=== PATIENT | male | born 1970 | race Caucasian/White ===

== ENCOUNTER 2019-07-03 15:50 | Inpatient (IN) | payer BC ==
[~2019-07-03] VITALS: Ht 182.9 cm; Wt 99.6 kg
[~2019-07-03 15:50] MED LIST changes: -COLACE 100100 MG/CAP PO; -COZAAR100 MG PO; -ELIQUIS 5MG PO; -K-TAB20 PO; -MOTRIN 400400 MG/TAB PO; -NORCO 325 MG-7.1 TAB PO; -ULTRAM 50MG TAB50 MG PO; -ZYRTEC 10MG10 MG PO
[2019-07-03] MEDS ORDERED: COZAAR100 MG PO (16:23)
[2019-07-03] MEDS ORDERED: NORCO 325 MG-7.1 TAB PO (16:24)
[2019-07-03] MEDS ORDERED: ULTRAM 50MG TAB50 MG PO (16:25)
[2019-07-03] MEDS ORDERED: COLACE 100100 MG/CAP PO (16:26)
[2019-07-03] MEDS ORDERED: ZYRTEC 10MG10 MG PO (16:26)
[2019-07-03] MEDS ORDERED: MOTRIN 400400 MG/TAB PO (16:27)
--- NOTE | 2019-07-03 17:29 | NUR ---
Admission assessment completed, alert/oriented, vital signs stable, taz pain at this time, had recent right shoulder surgery and reports recently easily fatigued and SOA with exertion as well as some low grade fevers, CT showed right sided PE, lungs are CTA/ slightly diminished on the right side, O2 sats WNL on room air, heart RRR/distal pulses are palabple, no lower extrm swelling/redness noted, I have notified of his arrival, I have reviewed home meds/ allergies/ pharmacy
[2019-07-03 17:41] VITALS: BP 116/79; PULSE 108; TEMP 97.5
[2019-07-03 18:41] LABS: PARTIAL THROMBOPLASTIN TIME 33.3 SECONDS (26.0-37.0)
[2019-07-03 19:07] VITALS: BP 110/72; PULSE 110; TEMP 98.6
--- NOTE | 2019-07-03 19:11 | NUR ---
Resting in bed. Assessment complete. Bases bilaterally dimished. Denies shortness of breath at this time. Heart sounds normal-tachy. Bowels active x4. Pules strong throughout. No edema noted. Patient reports mild left calf pain with flexion. No redness or swelling present. Reports mild right shoulder pain from recent surgery otherwise no pain. Heparin infusing at 18ml/hr as ordered into left wrist. Denies other needs at this time. Call light in reach.
--- NOTE | 2019-07-03 22:18 | NUR ---
IVF started as ordered. Patient resting in bed. Denies needs. Call light in reach.
[2019-07-04] VITALS (8 sets, daily range): BP systolic 107–122; BP diastolic 32–75; PULSE 93–110; TEMP 98–99.1
--- NOTE | 2019-07-04 00:15 | NUR ---
Reports 09/06 pain. Request PRN tramadol, will provide. Denies other needs at this time. Call light in reach.
--- NOTE | 2019-07-04 00:20 | NUR ---
Temp 99.1, turned down room temp. Patient not under any covers at this time. Will monitor.
--- NOTE | 2019-07-04 05:42 | NUR ---
Patient had uneventful night. Resting in bed this AM with at bedside. Remains on heparin gtt as ordered. Redraw at 0630. denies needs this AM. Call light in reach.
--- NOTE | 2019-07-04 07:17 | NUR ---
Report given to KHOI Hughes
[2019-07-04 07:22] LABS: BASO % 0.4 % (0.0-2.0); EOS # 0.1 (0.0-0.7); EOS % 0.7 % (0-4.0); GRAN % 62.2 % (42.2-75.2); HEMATOCRIT 42.1 % (42.0-52.0); HEMOGLOBIN 13.6 g/dl (13.5-18.0); LYMPH # 2.1 (1.2-3.4); LYMPH % 25.4 % (20.0-51.0); MEAN CELL VOLUME 88 fl (80.0-100.0); MEAN CORPUSCULAR HEMOGLOBIN 28 pg (27.0-31.0); MEAN CORPUSCULAR HGB CONC 32 g/dl (33.0-37.0); MEAN PLATELET VOLUME 10.1 fl (7.4-10.4); MONO # 0.8 (0.1-0.6); MONO % 10.4 % (1.7-9.3); PLATELET COUNT 274 K/mm3 (130-400); REDCELL DISTRIBUTION WIDTH-CV 12.9 % (11.5-14.5)
[2019-07-04 07:36] LABS: CALCIUM 8.9 mg/dL (8.4-10.2); CREATININE, serum 1.05 (0.66-1.25); POTASSIUM 3.3 mmol/L (3.4-5.0)
--- NOTE | 2019-07-04 08:46 | NUR ---
Pt appeared pleasant and reported pain a 2/10 in his LLE. I gave him his medications and he had no other requests at this time. His was at bedside and he asked about his heart ECHO which I confirmed would be occuring today. Breath sounds were normal as well as heart sounds.
--- NOTE | 2019-07-04 10:49 | NUR ---
Initial visit; Patient thanked [employer]ly[employer] Etcher for looking in on him and offering Holy Communion.
--- NOTE | 2019-07-04 15:16 | NUR ---
LIZA met with the patient and the patient's to complete initial assessment. The patient lives in [place] with his and two kids (both over 18+). The patient has a CPAP and receives supplies from [facility] and patient reports independence with ADLs. The patient's PCP is Dr. Wallace and patient receives medications from [facility] with no difficulties. The patient does not have advanced directives in the EMR. DPOA-HC form provided. The patient plans to return home at discharge with providing transportation. There are no additional needs at this time.
--- NOTE | 2019-07-04 17:54 | NUR ---
Pt still pleasant. table and water at bedside within reach, call light within reach. Heparin will be stopped at 2100 and elloquis will be started. fluids still going at 75mls/hr and heparin at 18mls/hr. Labs will be drawn at 0500. Pt denies any other needs at this time. Shift has been uneventful.
--- NOTE | 2019-07-04 21:26 | NUR ---
Sitting at bedside. Assessment complete. Lungs clear. Heart sounds normal. Bowels active x4. Pulses strong throughout. No edema noted. INT left wrist flushed without complications. Heparin gtt discontinued at this time as ordered. Reports 4/10 right shoulder pain. Would like tramadol around midnight. Denies other needs at this time. Call light in reach.
--- NOTE | 2019-07-04 22:00 | NUR ---
Patient ambulating in hallways. Denies needs.
--- NOTE | 2019-07-04 23:45 | NUR ---
Resting in bed with at bedside. Requested tramadol for right shoulder pain. Denies other needs at this time. Call light in reach.
[2019-07-05 03:55] VITALS: BP 120/61; PULSE 87; TEMP 98.9
--- NOTE | 2019-07-05 05:51 | NUR ---
Patient had uneventful night. Resting in bed this AM with at bedside. Call light in reach.
--- NOTE | 2019-07-05 06:40 | NUR ---
Report given to KHOI Esquivel
[2019-07-05 06:48] LABS: BASO % 0.4 % (0.0-2.0); EOS # 0.1 (0.0-0.7); EOS % 0.9 % (0-4.0); GRAN # 4.3 (1.4-6.5); GRAN % 64.1 % (42.2-75.2); HEMATOCRIT 40.2 % (42.0-52.0); HEMOGLOBIN 13.1 g/dl (13.5-18.0); LYMPH # 1.5 (1.2-3.4); LYMPH % 22.5 % (20.0-51.0); MEAN CELL VOLUME 87 fl (80.0-100.0); MEAN CORPUSCULAR HEMOGLOBIN 28 pg (27.0-31.0); MEAN CORPUSCULAR HGB CONC 33 g/dl (33.0-37.0); MEAN PLATELET VOLUME 10.4 fl (7.4-10.4); MONO # 0.8 (0.1-0.6); MONO % 11.4 % (1.7-9.3); PLATELET COUNT 272 K/mm3 (130-400); RED BLOOD COUNT 4.62 M/mm3 (4.20-5.60); REDCELL DISTRIBUTION WIDTH-CV 12.8 % (11.5-14.5)
[2019-07-05 07:12] LABS: CREATININE, serum 0.93 (0.66-1.25); POTASSIUM 3.2 mmol/L (3.4-5.0)
[2019-07-05 07:14] VITALS: BP 116/74; PULSE 90; TEMP 98.7
[2019-07-05] MEDS ORDERED: K-TAB20 PO (08:55)
[2019-07-05] MEDS ORDERED: ELIQUIS 5MG PO (08:56)
--- NOTE | 2019-07-05 09:06 | NUR ---
Assessment completed, alert/oriented, vital signs stable, denies pain or discomfort, heart RRR/ distal pulses are palapble, lungs CTA/ no resp.difficulty noted, patient stated he feels his deep breathing has gotten easier, Hep gtt stopped last night patient started on Eliquis/ printed education provided on new medicaitons, his is present at bedside and they deny other needs at this time, Plans for discharge home today
--- NOTE | 2019-07-05 11:07 | NUR ---
Patient discharging home and discharge ordes reviewed with patient and his , instructed to take meds as prescribed, scripst for KCL and Eliquis sent to pharmacy for him, instructed to follow up with PCP as scheduled, IV and Tele removed, ambulatory and leaving with his , i personally escorted them out to their vehicle
== END 2019-07-05 11:11 | disposition home or self-care (01) | DRG 175 ==
LOC: MEDICAL 15:50
PROVIDERS: Physician Assistant; ADMIT Hospitalist
DX: I26.99 Other pulmonary embolism without acute cor pulmonale (principal); J18.9 Pneumonia, unspecified organism; I10 Essential (primary) hypertension; E78.5 Hyperlipidemia, unspecified; R73.03 Prediabetes; G47.33 Obstructive sleep apnea (adult) (pediatric); E87.6 Hypokalemia; E88.89 Other specified metabolic disorders; R00.0 Tachycardia, unspecified; R73.9 Hyperglycemia, unspecified; Z99.81 Dependence on supplemental oxygen; Z79.891 Long term (current) use of opiate analgesic
CPT/HCPCS: 99222-AI; 99231-AI; J1644; J7030

== ENCOUNTER → 2019-07-03 | Outpatient (CLI) | payer BC ==
[~2019-07-03] MED LIST: COLACE 100100 MG/CAP PO; COZAAR100 MG PO; ELIQUIS 5MG PO; FLONASEALLERGY NS; HCTZ 25MG TAB25 MG PO; K-TAB20 PO; MOTRIN 400400 MG/TAB PO; NORCO 325 MG-51 TAB PO; NORCO 325 MG-7.1 TAB PO; ULTRAM 50MG TAB50 MG PO; ZOFRAN 4MG T4 MG/TAB PO; ZYRTEC 10MG10 MG PO
== END ==
LOC: ZCOL.LAB 12:06
DX: R50.9 Fever, unspecified (principal); R06.02 Shortness of breath; M79.621 Pain in right upper arm

== ENCOUNTER → 2019-07-03 | Outpatient (CLI) | payer BC | LOC: COL.RAD 13:32 | DX: I26.99 Other pulmonary embolism without acute cor pulmonale (principal); K76.0 Fatty (change of) liver, not elsewhere classified; J98.11 Atelectasis; M79.621 Pain in right upper arm | CPT/HCPCS: Q9967 ==